=== PATIENT | male | born 1995 | race Caucasian/White ===

== ENCOUNTER 2021-04-07 21:43 | Emergency (ER) | payer OTHER ==
[~2021-04-07] VITALS: Ht 180.3 cm; Wt 79.1 kg
[2021-04-07] MEDS ORDERED: AMOXICILLIN/CLAV 875-125MG TABLET ONE (23:39)
[2021-04-07] MEDS ORDERED: LIDOCAINE-MPF 1%, 5ML ONE (23:42)
[2021-04-08] MEDS ORDERED: LIDOCAINE-MPF 1%, 5ML INFIL ONE
[2021-04-08] MEDS ORDERED: AMOXICILLIN/CLAV 875-125MG TABLET PO ONE
[2021-04-08] MEDS ORDERED: NEOSPORIN OINT. PKT 1 PACKET ONE (00:25)
[2021-04-08 01:01] VITALS: BP 138/98
== END 2021-04-08 01:03 | disposition home or self-care (01) ==
LOC: ED 23:26
DX: S61.052A Open bite of left thumb without damage to nail, initial encounter (principal); S61.452A Open bite of left hand, initial encounter; S61.412A Laceration without foreign body of left hand, initial encounter; W54.0XXA Bitten by dog, initial encounter; Y93.89 Activity, other specified; Y92.009 Unspecified place in unspecified non-institutional (private) residence as the place of occurrence of the external cause; Y99.8 Other external cause status
CPT/HCPCS: 12042; 99284